=== PATIENT | male | born 1930 | race Caucasian/White ===

== ENCOUNTER 2018-09-25 18:08 | Inpatient (IN) ==
[2018-09-25] MEDS ORDERED: Lactated Ringers 1,000 ML PRIMARY IV ONE (18:18)
--- NOTE | 2018-09-25 18:21 | PDOC ---
Altered Mental Status HPI - General Chief Complaint: Altered Mental Status Stated Complaint: DECREASED LOC / EMESIS Date Seen by Provider: 09/25/18 Time Seen by Provider: 18:10 Source: POSITIVE: Patient, EMS Exam Limitations: POSITIVE: No limitations Nurse's Notes Reviewed & Considered: Yes - Record Incomplete EMS Report Reviewed & Considered: Verbal - Patient Home Medications Home Medications: Home Medications Lisinopril [Prinivil Tab] 1 tab PO DAILY 09/18/09 Nitroglycerin [Nitro-Dur] 1 ea TD DAILY 11/22/11 Nitroglycerin [Nitrostat] 1 tab SL PRN 11/22/11 Ranolazine [Ranexa] 1 tab PO BID #60 tab 12/12/12 Pantoprazole Sodium [Protonix] 40 mg PO DAILY #30 tab 07/04/14 Diltiazem HCl [Cardizem Cd] 1 cap PO QAM #1 07/05/14 Furosemide 1 tab PO QAM tab 08/04/14 Menthol [Biofreeze] 118 ml TOPICAL BID PRN ml 02/26/16 Naproxen Sodium [Aleve] 1 tab PO QHS tab 06/15/16 acetaminophen 500 mg capsule 1,000 mg PO QHS cap 05/30/17 acetaminophen 500 mg capsule 1,000 mg PO TID PRN cap 05/30/17 clopidogrel 75 mg tablet 75 mg PO QAM tab 05/30/17 insulin aspart U- 100 100 unit/mL subcutaneous solution 20 unit SUBCUT BID #1 vial 05/30/17 potassium chloride ER 10 mEq tablet,extended release 10 meq PO QDAY 05/30/17 insulin glargine (U- 100) 100 unit/mL subcutaneous solution 40 unit SUBCUT QHS ml 06/05/18 insulin glargine (U-100) 100 unit/mL (3 mL) subcutaneous pen 10 unit SUBCUT QDAY ml 06/05/18 nitroglycerin 0.4 mg/hr transdermal 24 hour patch 1 patch TRANSDERM QPM ea 06/05/18 melatonin 3 mg tablet 3 mg PO QHS 08/14/18 oxybutynin chloride 5 mg tablet 5 mg PO QDAY tab 08/14/18 tamsulosin 0.4 mg capsule 0.4 mg PO QHS cap 08/14/18 - Patient Allergies Allergies/Adverse Reactions: Allergies Allergy/AdvReac Type Severity Reaction Status Date / Time BETA BLOCKERS Allergy Unknown [place] Uncoded 09/25/18 22:55 Past Medical History - heen HEENT History: Hard of Hearing, Other (please comment) Additional HEENT History: wears glasses Cardiovascular History: Hypertension, Angina, CAD, Arrhythmia, Hyperlipidemia, Other (please comment) Additional Cardiovasular History: BRADYCARDIA, HYPERTENSIVE CARDIOVASCULAR DISEASE. Respiratory History: COPD, Home Oxygen Use Gastrointestinal History: GERD, Other (please comment) Additional Gastrointestinal History: REFULX ESOPHAGITIS Genitourinary History: Denies History Endocrine History: Type 2 Diabetes (insulin) Musculoskeletal History: Muscle Weakness, Joint Pain, Other (please comment) Prosthesis or Implant: No Additional Musculoskeletal History: UNABLE TO AMBULATE ATTRIBUTED TO "BAD KNEES" Neurological History: CVA, Dementia Blood Disorders: Anemia Psychiatric History: Depression, Anxiety Disorders, Other (please comment) Additional Psychiatric History: INSOMNIA History of Sexually Transmitted Diseases: No Cancer History: Denies History History of MDRO: Unknown History of Other Communicable Diseases: No Alcohol Use: None In the Past 12 Months, Have Used or Abuse Any Substance: None Previous Surgical History: Yes Type / Date of Surgery: HEAD SURGERY 1967, KNEE REPLACEMENT, APPY Anesthesia Reactions: No Malignant Hyperthermia: No Significant Family History: No pertinent family hx ROS - Limitations ROS Limitations: Clinical Condition Altered Mental Physical Exam - General Appearance General Appearance: POSITIVE: Alert, Mild Distress - HEENT HEENT: POSITIVE: Head Inspection Nml, PERRL, EOMI, Dry Mucous Membranes. NEGATIVE: Ear Drainage, Purulent Nasal Drainage, Pharyngeal Erythema, Pharyngeal Exudate - Pupil Size Pupil Size: 4 mm: Bilateral - Neuro/Psych Neurological: POSITIVE: Confusion, Weakness. NEGATIVE: Facial Asymmetry Cranial Nerves: POSITIVE: Other (Patient does not follow instructions) Cerebellar: POSITIVE: Other (unable to get patient to follow instructions) Reflexes: Patellar (R): 2+, Patellar (L): 2+, Bicep (R): 2+, Bicep (L): 2+ - Neck Neck: POSITIVE: Supple, Non Tender. NEGATIVE: Meningismus - Respiratory Respiratory: POSITIVE: No Respiratory Distress. NEGATIVE: Respiratory Distress, Wheezes, Rales, Rhonchi, Apneic - Cardiovascular CVS: POSITIVE: Heart Sounds Normal, Bradycardia Peripheral Pulses: Radial (R): 2+, Radial (L): 2+, Dorsalis-pedis (R): 2+, Dorsalis-pedis (L): 2+ - Abdomen Abdomen: Soft: (All Quadrants), Normal Bowel Sounds: (All Quadrants), No Splenomegaly: (All Quadrants), No Hepatomegaly: (All Quadrants), No Guarding: (All Quadrants), No Rebound: (All Quadrants) - Skin Skin: POSITIVE: Normal for Race, No Rash, Warm, Dry - Extremities Extremity: Non-Tender: (All Extremities), Normal ROM: (All Extremities), Normal Inspection: (All Extremities) Altered Mental Status - Results Reviewed By Me Xrays/CTs/US Reviewed: Yes Discussed with Radiologist: No Lab Results Reviewed by Me: Yes (Mild leukocytosis. Acute kidney injury. Anemia) CBC and BMP: 09/25/18 18:00 09/25/18 18:00 Lab Results:: Laboratory Results 09/25/18 09/25/18 09/25/18 18:00 18:00 18:00 WBC 11.64 H RBC 4.06 L Hgb 11.1 L Hct 34.3 L MCV 84.5 MCH 27.3 MCHC 32.4 L RDW Std Deviation 45.9 RDW Coeff of Rena 15.1 H Plt Count 346 MPV 8.9 Immature Gran % (Auto) 0.3 Neut % (Auto) 81.8 H Lymph % (Auto) 12.4 Coos % (Auto) 5.0 Eos % (Auto) 0.3 Baso % (Auto) 0.2 Immature Gran # (Auto) 0.03 Neut # (Auto) 9.53 Lymph # (Auto) 1.44 [place] # (Auto) 0.58 Eos # (Auto) 0.04 Baso # (Auto) 0.02 WBC Morphology Comment Normal morphology Plt Morphology Comment Normal morphology RBC Morph Comment Normal morphology Sodium 140 Potassium 4.5 Chloride 106 Carbon Dioxide 19 L Anion Gap 15 BUN 28 H Creatinine 1.6 H Estimated GFR Casing Tier BUN/Creatinine Ratio 17.50 Glucose 148 H Calculated Osmolality 298.0 H Calcium 9.4 Total Bilirubin 0.6 AST 32 ALT 7 L Alkaline Phosphatase 100 Troponin I Handheld 0.020 Total Protein 8.2 H Albumin 4.5 Globulin 3.7 Albumin/Globulin Ratio 1.20 L Ur Collection Type Urine Color Urine Clarity Urine pH Ur Specific [place] U Specif Grav (Refrac) Urine Protein Urine Glucose (UA) Urine Ketones Urine Occult Blood Urine Nitrate Urine Bilirubin Urine Urobilinogen Ur Leukocyte Esterase Ur Culture Indicated? 09/25/18 19:18 WBC RBC Hgb Hct MCV MCH MCHC RDW Std Deviation RDW Coeff of Rena Plt Count MPV Immature Gran % (Auto) Neut % (Auto) Lymph % (Auto) [place] % (Auto) Eos % (Auto) Baso % (Auto) Immature Gran # (Auto) Neut # (Auto) Lymph # (Auto) [place] # (Auto) Eos # (Auto) Baso # (Auto) WBC Morphology Comment Plt Morphology Comment RBC Morph Comment Sodium Potassium Chloride Carbon Dioxide Anion Gap BUN Creatinine Estimated GFR BUN/Creatinine Ratio Glucose Calculated Osmolality Calcium Total Bilirubin AST ALT Alkaline Phosphatase Troponin I Handheld Total Protein Albumin Globulin Albumin/Globulin Ratio Ur Collection Type Cath specimen Urine Color Yellow Urine Clarity C Urine pH 5.0 Ur Specific [place] <1.005 U Specif Grav (Refrac) 1.007 Urine Protein Negative Urine Glucose (UA) Negative Urine Ketones Negative Urine Occult Blood Negative Urine Nitrate Negative Urine Bilirubin Negative Urine Urobilinogen 0.2 Ur Leukocyte Esterase Negative Ur Culture Indicated? Culture not set EKG Interpreted/Reviewed By Me:: Yes EKG Interpretation:: POSITIVE: Other (Sinus bradycardia with first degree AV block with occasional PVCs and nonspecific t wave changes) - Patient's Progress Pain Medication Addressed: POSITIVE: Not Applicable Status: POSITIVE: Improved MDM / ED Course: 88 yo male presents to ED from intermediate. [facility] reports he was altered there and found to have vomited on himself. They report his heart rate was slow and in the 40s and that they couldn't obtain a blood pressure nor oxygen saturation. Therefore the placed patient on oxygen and called EMS. EMS found patient's initial pressure to be in 60s systolic and started a normal saline bolus. Patient arrived to ED with normal saline bolus running and his blood pressure had improved into the 80s. The initial liter of normal saline was completed and patient was given a second liter of fluids, lactated ringers. Blood cultures were drawn and patient was given rocephin IV as I was concerned he may be septic. After second liter of fluids the patient became talkative and would answer some questions which was an improvement from arrival. Patient was found to have a mild leukocytosis and an acute kidney injury on labs. UA was normal. CT head shows no acute intracranial injury. CXR shows subsegmental atalectasis but no acute infiltrate. I reviewed the patient's old medical record and his baseline heart rate runs around 50 bpm. I recommended admission for continued gentle hydration and further monitoring. Patient was amenable to plan and the case was discussed with Dr. Roa of the hospitalist service who accepted the patient for admission. patient was admitted to the floor in stable and improved condition. Antibiotics Given: Yes - CAP/CVA/Syncope CAP: POSITIVE: SaO2, Vital Signs, Mental Status Exam, Antibiotics, Blood Cultures, Chest X-ray Patient Care Time - Estimated PCT Patient Care Time (In Minutes): 90 Vital Signs - Recent Vital Signs Vital Signs: Vital Signs (Last 8 hours) Temp Pulse Pulse Resp BP BP Pulse Ox 09/25/18 22:45 97.1 F 51 L 20 103/88 94 09/25/18 18:14 95.9 F L 42 L 18 89/43 94 - VS Reviewed Vital Signs Reviewed: Yes Discharge Clinical Impression: Delirium, Dehydration, Hypotension, Acute kidney injury, Leukocytosis Discharge Disposition: Admit to Inpatient Condition: Fair Care Transferred To: Dr. Roa Date Decision to Admit to Inpatient: 09/25/18 Time Decision to Admit to Inpatient: 21:10
[2018-09-25 18:24] LABS: BASOPHILS # (AUTO) 0.02 10*3/UL; BASOPHILS % (AUTO) 0.2 % (0-1); EOSINOPHILS # (AUTO) 0.04 10*3/UL; EOSINOPHILS % (AUTO) 0.3 % (0-8); Hematocrit [HCT] 34.3 % (42.0-52.0); Hemoglobin [HGB] 11.1 g/dL (14.0-18.0); LYMPHOCYTES # (AUTO) 1.44 10*3/uL; MEAN CORPUSCULAR HEMOGLOBIN 27.3 PG (27-31); MEAN CORPUSCULAR HGB CONC 32.4 g/dL (33-37); MEAN CORPUSCULAR VOLUME 84.5 FL (80-90); MEAN PLATELET VOLUME 8.9 FL (7.4-12.2); MONOCYTES # (AUTO) 0.58 10*3/UL (0.3-0.8); NEUTROPHILS # (AUTO) 9.53 10*3/UL; NEUTROPHILS % (AUTO) 81.8 % (50-80); PLATELET MORPHOLOGY COMMENT NORMAL MORPHOLOGY (NORM); RBC MORPHOLOGY COMMENT NORMAL MORPHOLOGY (NORM); RED BLOOD COUNT 4.06 10^6/uL (4.70-6.10); WBC MORPHOLOGY COMMENT NORMAL MORPHOLOGY (NORM)
[2018-09-25 18:28] LABS: BLOOD UREA NITROGEN 28 mg/dL (7-22); SERUM ALBUMIN 4.5 g/dL (3.5-4.8)
--- NOTE | 2018-09-25 18:47 | EKG ---
[address] [address] Measurements Intervals [place] Rate: 44 P: 75 CT: 218 QRS: 59 QRSD: 93 T: 75 QT: 482 QTc: 432 Interpretive Statements PROBABLE JUNCTIONAL BRADYCARDIA WITH OCCASIONAL VENTRICULAR PREMATURE COMPLEXES NONSPECIFIC T-WAVE ABNORMALITY Compared to ECG 07/03/2014 10:03:27 Ventricular premature complex(es) now present Sinus rhythm no longer present T-wave abnormality still present Electronically Signed On 09-25-18 19:16:02 MDT by Aron Wagner [email or web address]
--- NOTE | 2018-09-25 19:13 | DI ---
XR CXR 1VW,09/25/2018 6:16 PM: Clinical History: Hypoxia and altered mental status Previous Exam: None at this facility. Findings: A single frontal radiograph of the chest is obtained, and demonstrates blunting of the left costophre champ angle. There is some mild silhouetting of the right heart border and the upper hemidiaphragms. Overlying EKG leads are seen. Mild degenerative changes are seen of the acromioclavicular joint. Impression: 1. Subsegmental atelectasis in the lung bases otherwise unremarkable.
[2018-09-25] MEDS ORDERED: cefTRIAXone Inj 2 GM in Sodium Chloride 0.9% 100 ML IV ONE (19:20)
[2018-09-25 19:22] LABS: CLARITY,URINE C (CLEAR); COLOR,URINE YELLOW (Y); URINE SAMPLE TYPE CATH SPECIMEN
[2018-09-25 19:23] LABS: BILIRUBIN,URINE NEGATIVE (NEG); GLUCOSE, URINE (UA) NEGATIVE (NEG); OCCULT BLOOD,URINE NEGATIVE (NEG); PROTEIN,URINE NEGATIVE (NEG); UROBILINOGEN,URINE 0.2 EU/dL (0.2)
[2018-09-25 19:24] LABS: URINE SPECIFIC GRAVITY - MAN 1.007
--- NOTE | 2018-09-25 21:00 | DI ---
CT Head WO Contrast,09/25/2018 8:18 PM: Clinical History: Altered mental status Previous Exam: None at this facility. Findings: Multiple helically acquired CT images are obtained through the brain without contrast, and demonstrat e stable diffuse age-related volume loss. There is no mass, hemorrhage or midline shift. The surround ing soft tissue and osseous structures are unremarkable and unchanged from the prior exam. Impression: No acute intracranial pathology.
[2018-09-25] MEDS ORDERED: D5-1/2NS + 20mEq KCL 1,000 ML PRIMARY IV ONE (21:51)
[2018-09-25] MEDS ORDERED: DEXTROSE 50%-WATER SYRINGE 50 ML SYRINGE IVP PRN (22:00)
[2018-09-25] MEDS ORDERED: DEXTROSE 31 GM GEL PO PRN (22:00)
[2018-09-25] MEDS ORDERED: Insulin Sliding Scale Protocol SUBCUT PRN (22:00)
[2018-09-25] MEDS ORDERED: Glucagon Inj Vial 1 MG/ML VIAL IM PRN (22:00)
--- NOTE | 2018-09-25 23:24 | DI ---
EXAM: CT Chest Without Intravenous Contrast CLINICAL HISTORY: Cough. TECHNIQUE: Axial computed tomography images of the chest without intravenous contrast. Coronal and sagittal reformations provided. COMPARISON: CT dated 09/20/2010. FINDINGS: Lungs: Opacities at the bilateral lung bases (L>R). Pleural space: Unremarkable. No pneumothorax. No significant effusion. Heart: Mild cardiomegaly. No significant pericardial effusion. Bones/joints: Osseous degenerative changes and mild curvature of the spine which may be related to positioning or scoliosis. No acute fracture. No dislocation. Soft tissues: Unremarkable. Vasculature: Atherosclerotic vascular disease including coronary disease. No thoracic aortic aneurysm. Lymph nodes: No enlarged lymph nodes. IMPRESSION: 1. Opacities at bilateral lung bases (L>R). Findings are suspicious for infectious pneumonia/infiltrates although other etiologies are not excluded. Recommend clinical correlation and follow-up imaging following treatment to assess for resolution. 2. Atherosclerotic vascular disease including coronary disease. No thoracic aortic aneurysm. 3. Mild cardiomegaly. 4. Osseous degenerative changes and mild curvature of spine which may be related to positioning or scoliosis. No acute fracture.
--- NOTE | 2018-09-25 23:30 | DI ---
EXAM: CT Abdomen Without Intravenous Contrast CLINICAL HISTORY: SHANI. Cough. TECHNIQUE: Axial computed tomography images of the abdomen without intravenous contrast. Coronal and sagittal reformations provided. COMPARISON: CT dated 09/08/2011. FINDINGS: Lung bases: Opacities in bilateral lung bases (L>R). Liver: Unremarkable. Gallbladder and bile ducts: Unremarkable. No calcified stones. No ductal dilation. Pancreas: Unremarkable. No ductal dilation. Spleen: Unremarkable. No splenomegaly. Adrenals: Unremarkable. No mass. Kidneys and ureters: Left renal cysts including a bilobed cyst with calcification along wall/septation. No hydronephrosis. Stomach and bowel: Mild distal colonic wall thickening, incompletely imaged. Air-fluid levels in the colon suggestive of diarrheal state which may be related to nonspecific enteritis/enterocolitis. Appendix: Appendix not seen. No findings to suggest acute appendicitis. Intraperitoneal space: No free air. No significant fluid collection. Bones/joints: Expansile/destructive process involving left iliac wing with associated soft tissue component and suspected fluid/edema in left iliacus muscle. Osseous degenerative changes. No acute fracture or dislocation. Soft tissues: Fat-containing umbilical hernia. Vasculature: Atherosclerotic vascular disease without abdominal aortic aneurysm. Lymph nodes: Unremarkable. No enlarged lymph nodes. IMPRESSION: 1. Opacities in bilateral lung bases (L>R) which may be related to infection/pneumonia with components of atelectasis or other etiologies not excluded. Correlate clinically. 2. Expansile/destructive process involving left iliac wing with associated soft tissue component and suspected fluid/edema in left iliacus muscle. Findings may be related to chronic infection and/or neoplasm. Recommend orthopedic referral and may consider MRI to further assess 3. Mild distal colonic wall thickening (incompletely imaged) suggestive of colitis. Additionally, there are air-fluid levels in proximal colon suggestive of diarrheal state which may be related to nonspecific enteritis/enterocolitis. Recommend clinical correlation. 4. Atherosclerotic vascular disease without abdominal aortic aneurysm. 5. Left renal cysts including a bilobed cyst with calcification along wall/septation. 6. Fat-containing umbilical hernia.
[2018-09-26] MEDS ORDERED: LIDOCAINE HCL 2 % 10 ML JELLY URO-JECT TOPICAL PRN (00:19)
[2018-09-26] MEDS ORDERED: LIDOCAINE W/ SODIUM BICARB 0.5 ML SYR SUBD PRN (00:19)
[2018-09-26] MEDS ORDERED: Sodium Chloride 0.9% 1,000 ML PRIMARY IV ONE (00:19)
[2018-09-26] MEDS ORDERED: Magnesium Sulfate 2gm (Premix) 2 GM/50 ML BAG IV ONE (00:19)
[2018-09-26] MEDS: Lactated Ringers 1,000 ML PRIMARY IV SCH ×3 (00:52→17:54)
[2018-09-26] MEDS: TAMSULOSIN 0.4 MG CAPSULE PO SCH ×2 (00:53→20:10)
[2018-09-26] MEDS: HEPARIN 5000 UNIT/1 ML SUBCUT SCH ×3 (00:53→16:38)
[2018-09-26] MEDS: cefTRIAXone Inj 2 GM in Sodium Chloride 0.9% 100 ML IV SCH (00:54)
[2018-09-26] MEDS ORDERED: Ertapenem Inj 1 GM in Sodium Chloride 0.9% 100 ML IV SCH (02:00)
[2018-09-26] MEDS ORDERED: ONDANSETRON 4 MG/2 ML VIAL IVP PRN (02:02)
--- NOTE | 2018-09-26 02:53 | PDOC ---
HPI - History of Present Illness History of Present Illness: This is a 88-year-old gentleman who resides at [facility] the care home reported that he had vomited and had the bradycardia which is in his histor y was brought to the emergency room also was found to have low systolic blood pressures patient was given IV fluids and his blood pressure stabilized urine was clear. I did get a CT scan of the chest and abdomen and pelvis without contrast which revealed pneumonia I have treated the patient with IV antibiotics I chose Invanz because a CT scan of the abdomen showed also some colitis. Patient does not complain of pain he does not have pain in his hips he is not short of breath or has chest pain We have put in a Guido we will give him some IV Lasix 20 and continue IV fluids does have some lower extremity edema. Past Medical History Medical History: Hypertension, Angina, CAD, Arrhythmia, Hyperlipidemia, Other (please comment). Additional Cardiovasular History: BRADYCARDIA, HYPERTENSIVE CARDIOVASCULAR DISEASE. Surgical History: Knee replacements as well. Patient does not ambulate at the care home Tobacco Use: Never Smoker In the Past 12 Months, Have Used or Abuse Any of the Following Substance: None Medication / Allergies Home Medications: Home Medications Medication Instructions Recorded Confirmed Type Lisinopril [Prinivil Tab] 1 tab PO DAILY 09/18/09 09/26/18 History Nitroglycerin [Nitro-Dur] 1 ea TD DAILY 11/22/11 09/26/18 History Nitroglycerin [Nitrostat] 1 tab SL PRN 11/22/11 09/26/18 History Ranolazine [Ranexa] 1 tab PO BID #60 tab 12/12/12 09/26/18 History Pantoprazole Sodium [Protonix] 40 mg PO DAILY #30 tab 07/04/14 09/26/18 Rx Diltiazem HCl [Cardizem Cd] 1 cap PO QAM #1 07/05/14 09/26/18 History Furosemide 1 tab PO QAM tab 08/04/14 09/26/18 History Menthol [Biofreeze] 118 ml TOPICAL BID PRN ml 02/26/16 09/26/18 History Naproxen Sodium [Aleve] 1 tab PO QHS tab 06/15/16 09/26/18 History acetaminophen 500 mg capsule 1,000 mg PO QHS cap 05/30/17 09/26/18 History acetaminophen 500 mg capsule 1,000 mg PO TID PRN cap 05/30/17 09/26/18 History clopidogrel 75 mg tablet 75 mg PO QAM tab 05/30/17 09/26/18 History insulin aspart U- 100 100 unit/mL 20 unit SUBCUT BID #1 vial 05/30/17 09/26/18 Rx subcutaneous solution potassium chloride ER 10 mEq 10 meq PO QDAY 05/30/17 09/26/18 History tablet,extended release insulin glargine (U- 100) 100 40 unit SUBCUT QHS ml 06/05/18 09/26/18 History unit/mL subcutaneous solution insulin glargine (U-100) 100 10 unit SUBCUT QDAY ml 06/05/18 09/26/18 History unit/mL (3 mL) subcutaneous pen nitroglycerin 0.4 mg/hr 1 patch TRANSDERM QPM ea 06/05/18 09/26/18 History transdermal 24 hour patch melatonin 3 mg tablet 3 mg PO QHS 08/14/18 09/26/18 History oxybutynin chloride 5 mg tablet 5 mg PO QDAY tab 08/14/18 09/26/18 History tamsulosin 0.4 mg capsule 0.4 mg PO QHS cap 08/14/18 09/26/18 History Allergies/Adverse Reactions: Allergies Allergy/AdvReac Type Severity Reaction Status Date / Time BETA BLOCKERS Allergy Unknown [place] Uncoded 09/25/18 22:55 Exam - Vitals Vital Signs: Vital Signs Temperature 97.1 F Temperature Source Temporal Artery Scan Pulse Rate [Pulse Oximeter] 59 Pulse Rate 51 Respiratory Rate 24 Blood Pressure [Left Arm] 117/45 Blood Pressure 103/88 Pulse Ox 95 Oxygen Flow Rate 4 Oxygen Delivery Method Nasal Cannula Height 5 ft 6 in Weight 240 lb - General General Appearance: No Acute Distress, Cooperative - Head Head Exam: Normal Inspection, Atraumatic - Respiratory Respiratory Exam: POSITIVE: Breathing Non Labored, Decreased Breath Sounds. NEG ATIVE: Rhonci, Crackles, Wheezes - Cardiovascular Cardiovascular Exam: POSITIVE: RRR, No Murmur, No Clicks, No Gallops, No Rubs, PMI Non-Displaced - GI/Abdominal GI/Abdominal Exam: POSITIVE: Normal Bowel Sounds, Non Tender, Non Distended, Soft, No Masses, No Hepatomegaly, No Splenomegaly, No Organomegaly - Extremities Extremities Exam: POSITIVE: +1 Edema - Neurological Neurological Exam: POSITIVE: Alert, No Facial Droop, Speech Intact / Clear, Moves All Extremities Equally Results - Labs CBC and BMP: 09/25/18 18:00 09/25/18 18:00 Assessment and Plan - Patient Problems (1) Pneumonia Current Visit: Yes Status: Acute Code(s): J18.9 - Pneumonia, unspecified organism (2) Acute kidney injury Current Visit: Yes Status: Acute Code(s): N17.9 - Acute kidney failure, unspecified (3) Dehydration Current Visit: Yes Status: Acute Code(s): E86.0 - Dehydration (4) Hypotension Current Visit: Yes Status: Acute Code(s): I95.9 - Hypotension, unspecified (5) Leukocytosis Current Visit: Yes Status: Acute Code(s): D72.829 - Elevated white blood cell count, unspecified - Assessment / Plan Additional Assessment/Plan Details: #1. Coronary pneumonia on CT scan a she received Rocephin in the ER gave patient 1 dose of Invanz. #2 possible colitis continue Invanz #3 dehydration with hypotension patient is being resuscitated with IV fluids I will give 20 of Lasix IV to increase his urine output a little bit this is a very careful balance between hypotension and fluid overload I will check a BMP #4 the patient is bedbound at the care home #5 patient is pretty critical we'll keep on treating see if he has any family members and we will discuss further treatment options at this time we will continue treating if he deteriorates I will try to reach the family stress with nursing in the room
[2018-09-26] MEDS ORDERED: FUROSEMIDE 10 MG/1 ML - 2 ML VIAL IVP ONE (03:14)
[2018-09-26 04:28] LABS: BASOPHILS # (AUTO) 0.01 10*3/UL; BASOPHILS % (AUTO) 0.1 % (0-1); EOSINOPHILS # (AUTO) 0.01 10*3/UL; EOSINOPHILS % (AUTO) 0.1 % (0-8); Hematocrit [HCT] 32.1 % (42.0-52.0); Hemoglobin [HGB] 10.7 g/dL (14.0-18.0); LYMPHOCYTES # (AUTO) 0.91 10*3/uL; MEAN CORPUSCULAR HEMOGLOBIN 27.8 PG (27-31); MEAN CORPUSCULAR HGB CONC 33.3 g/dL (33-37); MEAN CORPUSCULAR VOLUME 83.4 FL (80-90); MEAN PLATELET VOLUME 8.9 FL (7.4-12.2); MONOCYTES # (AUTO) 0.57 10*3/UL (0.3-0.8); MONOCYTES % (AUTO) 6.5 % (5-15); NEUTROPHILS # (AUTO) 7.23 10*3/UL; NEUTROPHILS % (AUTO) 82.8 % (50-80); RED BLOOD COUNT 3.85 10^6/uL (4.70-6.10)
[2018-09-26 04:33] LABS: PLATELET MORPHOLOGY COMMENT NORMAL MORPHOLOGY (NORM); RBC MORPHOLOGY COMMENT NORMAL MORPHOLOGY (NORM); WBC MORPHOLOGY COMMENT NORMAL MORPHOLOGY (NORM)
[2018-09-26 04:38] LABS: BLOOD UREA NITROGEN 31 mg/dL (7-22); BUN/CREATININE RATIO 19.37 (6-20); SERUM ALBUMIN 3.6 g/dL (3.5-4.8)
[2018-09-26 05:37] LABS: VENOUS PH 7.3 (7.32-7.42)
[2018-09-26] MEDS: CLOPIDOGREL 75 MG TABLET PO SCH (09:41)
[2018-09-26] MEDS: PANTOPRAZOLE IV 40 MG VIAL IVP SCH (09:41)
[2018-09-27] MEDS ORDERED: Sodium Chloride 0.9% 100 ML IV ONE (00:38)
[2018-09-27] MEDS: Lactated Ringers 1,000 ML PRIMARY IV SCH ×3 (00:39→18:43)
[2018-09-27] MEDS: HEPARIN 5000 UNIT/1 ML SUBCUT SCH ×3 (00:39→17:25)
[2018-09-27] MEDS: cefTRIAXone Inj 2 GM in Sodium Chloride 0.9% 100 ML IV SCH (00:39)
[2018-09-27 05:58] LABS: BASOPHILS # (AUTO) 0.02 10*3/UL; BASOPHILS % (AUTO) 0.3 % (0-1); EOSINOPHILS # (AUTO) 0.16 10*3/UL; EOSINOPHILS % (AUTO) 2.1 % (0-8); Hematocrit [HCT] 28.2 % (42.0-52.0); Hemoglobin [HGB] 9.1 g/dL (14.0-18.0); LYMPHOCYTES # (AUTO) 1.46 10*3/uL; MEAN CORPUSCULAR HEMOGLOBIN 26.8 PG (27-31); MEAN CORPUSCULAR HGB CONC 32.3 g/dL (33-37); MEAN CORPUSCULAR VOLUME 83.2 FL (80-90); MEAN PLATELET VOLUME 9.3 FL (7.4-12.2); MONOCYTES # (AUTO) 0.64 10*3/UL (0.3-0.8); MONOCYTES % (AUTO) 8.6 % (5-15); NEUTROPHILS # (AUTO) 5.17 10*3/UL; NEUTROPHILS % (AUTO) 69.3 % (50-80); RED BLOOD COUNT 3.39 10^6/uL (4.70-6.10)
[2018-09-27 06:02] LABS: PLATELET MORPHOLOGY COMMENT NORMAL MORPHOLOGY (NORM); RBC MORPHOLOGY COMMENT NORMAL MORPHOLOGY (NORM); WBC MORPHOLOGY COMMENT NORMAL MORPHOLOGY (NORM)
[2018-09-27 06:18] LABS: BLOOD UREA NITROGEN 20 mg/dL (7-22); BUN/CREATININE RATIO 18.18 (6-20)
[2018-09-27] MEDS: Ertapenem Inj 0.5 GM in Sodium Chloride 0.9% 100 ML IV SCH (07:17)
[2018-09-27] MEDS: CLOPIDOGREL 75 MG TABLET PO SCH (08:03)
[2018-09-27] MEDS: PANTOPRAZOLE IV 40 MG VIAL IVP SCH (08:03)
--- NOTE | 2018-09-27 14:11 | DI ---
CT Abdomen/Pelvis WO Contrast,09/27/2018 12:55 PM: Clinical History: Iliac abnormality. Previous Exam: September 25, 2018 and September 08, 2011 Findings: Multiple helically acquired CT images are obtained through the abdomen and pelvis without contrast. T here are small bilateral pleural effusions. There is a Guido catheter within the urinary bladder. There is some fluid within the rectum. There is a trace amount of fluid within the left lower quadrant. There is an expansile lesion involving the left anterior superior iliac crest with some fragmentation and some surrounding periosteal reaction. There is a soft tissue component within the anterior super ior iliac crest as well as some thickening within the iliac is muscle. This was at least partially vi sible on the examination in 2011. There has been some change in the appearance with new periosteal re action and increasing expansion. A few peripheral vascular calcifications are seen. There is diffuse osteopenia. There is loss of intervertebral disc height at multiple levels with some gentle dextroscoliosis. There are no mesenteric nor retroperitoneal lymphadenopathy. Impression: Mass within the left anterior superior iliac crest which has been present for several years, but now demonstrating some increasing expansion of some periosteal reaction and fragmentation which was sligh tly more than on the prior exam. This could represent a chronic traumatic process. Cannot completely rule out the possibility of a malignant process. Correlate with patient's history. Tissue sampling ma y be appropriate.
--- NOTE | 2018-09-27 15:56 | PDOC(PROG) ---
Date of Service: 09/27/18 Time of Service: 15:47 Interval History: patient seen and evaluated earlier no history from patient obtainable due to dementia, has lots of sputum on his chest this AM Objective : Data - Labs CBC and BMP: 09/27/18 05:20 09/27/18 05:20 Objective : Exam - General General Appearance: No Acute Distress, Cooperative Additional General Exam Details: Vital Signs - Last Taken Temperature 97 F 09/27/18 12:19 Pulse Rate 69 09/27/18 12:19 Respiratory Rate 16 09/27/18 12:19 Blood Pressure 130/44 09/27/18 12:19 Pulse Ox 94 09/27/18 12:19 - Eye Eye Exam: No Scleral Icterus - ENT ENT Exam: Mucous Membranes Dry - Neck Neck Exam: JVP is not Raised - Respiratory Respiratory Exam: Breathing Non Labored, Decreased Breath Sounds - Cardiovascular Cardiovascular Exam: RRR, No Murmur, No Clicks, No Gallops, No Rubs, No JVD - GI/Abdominal GI/Abdominal Exam: Normal Bowel Sounds, Non Tender, Non Distended, Soft - Extremities Extremities Exam: No Clubbing Present, No Edema Present, No Cyanosis Present - Neurological Neurological Exam: Alert, No Facial Droop, Speech Intact / Clear, Moves All Extremities Equally, Altered Assessment and Plan - Patient Problems (1) Pneumonia Current Visit: Yes Status: Acute Code(s): J18.9 - Pneumonia, unspecified organism Qualifiers: Pneumonia type: aspiration pneumonia (2) Colitis Current Visit: Yes Status: Acute Code(s): K52.9 - Noninfective gastroenteritis and colitis, unspecified (3) Bone lesion Current Visit: Yes Status: Acute Code(s): M89.9 - Disorder of bone, un specified (4) Dehydration Current Visit: Yes Status: Acute Code(s): E86.0 - Dehydration (5) Acute kidney injury Current Visit: Yes Status: Resolved Code(s): N17.9 - Acute kidney failure, unspecified (6) Dementia Current Visit: Yes Status: Acute Code(s): F03.90 - Unspecified dementia without behavioral disturbance Qualifiers: Dementia type: Alzheimer's disease Alzheimer's disease onset: late-onset Dementia behavioral disturbance: without behavioral disturbance Qualified Code(s): G30.1 - Alzheimer's disease with late onset; F02.80 - Dementia in other diseases classified elsewhere without behavioral disturbance - Assessment / Plan Additional Assessment/Plan Details: Continue treatment for what appears to be aspiration pneumonia with Invanz. This should also cover for colitis. Day #2 of antibiotics I discussed with orthopedics regarding this iliac issue on the left side. We reviewed the CT scans from 2011 and yesterday. It appears that there is something that's progressive but we will get a bony window CT scan to further elucidate any issues. Given the patient's age, dementia and like to try to find some family somewhere to discuss how far they like to take this type of a workup. I wonder about a slow-growing tumor. Not ready for disposition yet. Labs in a.m.
[2018-09-27] MEDS: TAMSULOSIN 0.4 MG CAPSULE PO SCH (20:04)
[2018-09-28] MEDS: Lactated Ringers 1,000 ML PRIMARY IV SCH ×2 (02:50→14:13)
[2018-09-28 05:49] LABS: BASOPHILS # (AUTO) 0.02 10*3/UL; BASOPHILS % (AUTO) 0.3 % (0-1); EOSINOPHILS % (AUTO) 4.7 % (0-8); Hematocrit [HCT] 27.5 % (42.0-52.0); Hemoglobin [HGB] 8.9 g/dL (14.0-18.0); LYMPHOCYTES # (AUTO) 1.49 10*3/uL; MEAN CORPUSCULAR HEMOGLOBIN 27.2 PG (27-31); MEAN CORPUSCULAR HGB CONC 32.4 g/dL (33-37); MEAN CORPUSCULAR VOLUME 84.1 FL (80-90); MEAN PLATELET VOLUME 8.3 FL (7.4-12.2); MONOCYTES # (AUTO) 0.52 10*3/UL (0.3-0.8); MONOCYTES % (AUTO) 8.1 % (5-15); NEUTROPHILS # (AUTO) 4.07 10*3/UL; NEUTROPHILS % (AUTO) 63.5 % (50-80); RED BLOOD COUNT 3.27 10^6/uL (4.70-6.10)
[2018-09-28 06:12] LABS: PLATELET MORPHOLOGY COMMENT NORMAL MORPHOLOGY (NORM); RBC MORPHOLOGY COMMENT NORMAL MORPHOLOGY (NORM); WBC MORPHOLOGY COMMENT NORMAL MORPHOLOGY (NORM)
[2018-09-28 06:26] LABS: BLOOD UREA NITROGEN 15 mg/dL (7-22); BUN/CREATININE RATIO 16.66 (6-20); SERUM ALBUMIN 2.7 g/dL (3.5-4.8)
[2018-09-28] MEDS: Ertapenem Inj 0.5 GM in Sodium Chloride 0.9% 100 ML IV SCH (07:25)
[2018-09-28] MEDS: CLOPIDOGREL 75 MG TABLET PO SCH (09:38)
[2018-09-28] MEDS: PANTOPRAZOLE IV 40 MG VIAL IVP SCH (09:38)
[2018-09-28] MEDS: HEPARIN 5000 UNIT/1 ML SUBCUT SCH ×2 (11:53)
[2018-09-28 12:33] VITALS: BP 150/53; RESP 18; TEMP 96.9; O2SAT 95
--- NOTE | 2018-09-28 14:38 | DCSUMMARY ---
Hospitalization Summary Admit Date: 09/26/2018 Discharge Date: 09/28/18 Primary Diagnosis:: pneumonia Hospital Course: This is an 88-year-old male with dementia and no family members or appointed power of document review attorney, who was sent over from [facility] after he was found be bradycardic and had vomiting. He was admitted, found to have colitis and what appeared to be pneumonia as well. He was treated for potential aspiration pneumonia along with colitis with Invanz daily. He had hypotension initially which resolved. He had the escalation in his white blood cell count with antibiotic therapy and fluids. The patient will be discharged on Augmentin by mouth twice a day for 5 additional days for a total of 8 days for this pneumonia. He is much better and would like to go back to [facility]. Incidentally, we did notice a left iliac crest lesion. 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 I think the benefits of doing any biopsy procedures are outweighed by his significant risk given this patient's dementia, age, surgical risks, and nondistended candidate see for therapy should this be a malignancy. He is too ill, deconditioning, nonmobile, to tolerate chemotherapy or extensive surgical therapy for this lesion. He does not have pain on palpation of his left hip or iliac crest. He had no understanding of this process from the past. No complaints of chest pain or trouble breathing today. History compromised by dementia. Assessment and Plan: 1. As per discharge assessments noted 2. Disposition: Patient is discharged back to [facility] 3. Condition on discharge, stable and improved. 4. Diet: regular diet 5. Activities: resume normal activities 6. Follow-Up: 1. Dr. Chew will resume primary care 7. Medications at the Time of Discharge: Home Medications Medication Instructions Recorded Confirmed Type Lisinopril [Prinivil Tab] 1 tab PO DAILY 09/18/09 09/26/18 History Nitroglycerin [Nitro-Dur] 1 ea TD DAILY 11/22/11 09/26/18 History Nitroglycerin [Nitrostat] 1 tab SL PRN 11/22/11 09/26/18 History Ranolazine [Ranexa] 1 tab PO BID #60 tab 12/12/12 09/26/18 History Pantoprazole Sodium [Protonix] 40 mg PO DAILY #30 tab 07/04/14 09/26/18 Rx Diltiazem HCl [Cardizem Cd] 1 cap PO QAM #1 07/05/14 09/26/18 History Furosemide 1 tab PO QAM tab 08/04/14 09/26/18 History Menthol [Biofreeze] 118 ml TOPICAL BID PRN ml 02/26/16 09/26/18 History Naproxen Sodium [Aleve] 1 tab PO QHS tab 06/15/16 09/26/18 History acetaminophen 500 mg capsule 1,000 mg PO QHS cap 05/30/17 09/26/18 History acetaminophen 500 mg capsule 1,000 mg PO TID PRN cap 05/30/17 09/26/18 History clopidogrel 75 mg tablet 75 mg PO QAM tab 05/30/17 09/26/18 History insulin aspart U- 100 100 unit/mL 20 unit SUBCUT BID #1 vial 05/30/17 09/26/18 Rx subcutaneous solution potassium chloride ER 10 mEq 10 meq PO QDAY 05/30/17 09/26/18 History tablet,extended release insulin glargine (U- 100) 100 40 unit SUBCUT QHS ml 06/05/18 09/26/18 History unit/mL subcutaneous solution insulin glargine (U-100) 100 10 unit SUBCUT QDAY ml 06/05/18 09/26/18 History unit/mL (3 mL) subcutaneous pen nitroglycerin 0.4 mg/hr 1 patch TRANSDERM QPM ea 06/05/18 09/26/18 History transdermal 24 hour patch melatonin 3 mg tablet 3 mg PO QHS 08/14/18 09/26/18 History oxybutynin chloride 5 mg tablet 5 mg PO QDAY tab 08/14/18 09/26/18 History tamsulosin 0.4 mg capsule 0.4 mg PO QHS cap 08/14/18 09/26/18 History Amoxicill/Clav 875/125mg 1 ea PO BID #10 tab 09/28/18 Rx [Augmentin 875/125mg] 8. Time, care, counseling and coordination of care for this discharge is less than 30 minutes. Exam - Vitals Vital Signs: Vital Signs Temperature 96.9 F Temperature Source Temporal Artery Scan Pulse Rate [Pulse Oximeter] 65 Pulse Rate 76 Respiratory Rate 18 Blood Pressure [Right Arm] 141/57 Blood Pressure [Left Arm] 150/53 Blood Pressure 103/88 Pulse Ox 95 Oxygen Flow Rate 4 Oxygen Delivery Method Nasal Cannula Height 5 ft 6 in Weight 201 lb 6 oz - General General Appearance: No Acute Distress, Cooperative - Eye Eye Exam: POSITIVE: No Scleral Icterus - ENT ENT Exam: POSITIVE: Mucous Membranes Moist - Neck Neck Exam: JVP is not Raised - Respiratory Respiratory Exam: POSITIVE: Breathing Non Labored, Decreased Breath Sounds - Cardiovascular Cardiovascular Exam: POSITIVE: RRR, No Murmur, No Clicks, No Gallops, No Rubs, No JVD - GI/Abdominal GI/Abdominal Exam: POSITIVE: Normal Bowel Sounds, Non Tender, Non Distended, Soft - Extremities Extremities Exam: POSITIVE: No Clubbing Present, No Edema Present, No Cyanosis Present - Neurological Neurological Exam: POSITIVE: Alert, No Facial Droop, Speech Intact / Clear Data Peritnent Studies: Laboratory Results 09/28/18 09/28/18 05:40 05:40 WBC 6.41 RBC 3.27 L Hgb 8.9 L Hct 27.5 L MCV 84.1 MCH 27.2 MCHC 32.4 L RDW Std Deviation 44.9 RDW Coeff of Rena 14.9 H Plt Count 234 MPV 8.3 Immature Gran % (Auto) 0.2 Neut % (Auto) 63.5 Lymph % (Auto) 23.2 [place] % (Auto) 8.1 Eos % (Auto) 4.7 Baso % (Auto) 0.3 Immature Gran # (Auto) 0.01 Neut # (Auto) 4.07 Lymph # (Auto) 1.49 [place] # (Auto) 0.52 Eos # (Auto) 0.30 Baso # (Auto) 0.02 WBC Morphology Comment Normal morphology Plt Morphology Comment Normal morphology RBC Morph Comment Normal morphology Sodium 138 Potassium 3.8 Chloride 107 Carbon Dioxide 22 L Anion Gap 9 BUN 15 Creatinine 0.9 BUN/Creatinine Ratio 16.66 Glucose 171 H Calculated Osmolality 290.0 Calcium 8.2 L Total Bilirubin 0.5 AST 64 H ALT 36 Alkaline Phosphatase 53 Total Protein 5.3 L Albumin 2.7 L Globulin 2.6 Albumin/Globulin Ratio 1.00 L Procedures: [address] [facility] [facility] [place] [address] PH: DD: [phone] FAX: [phone] ~DIAGNOSTIC IMAGING REPORT~ Patient: Roshan Tillman : 1930 Sex: M Age: 88 Exam Name: CT Abdomen/Pelvis WO Contrast Exam Date: 09/27/18 Report # : [id number] CPT Code: 24593 EMR/MR #: [id number] Ordering: DENA BOGGS Admiting: MISSY ISABEL MD. Primary: Dmitry Chew MD Attending: MISSY ISABEL MD. Signed CT Abdomen/Pelvis WO Contrast,09/27/2018 12:55 PM: Clinical History: Iliac abnormality. Previous Exam: September 25, 2018 and September 08, 2011 Findings: Multiple helically acquired CT images are obtained through the abdomen and pelvis without contrast. There are small bilateral pleural effusions. There is a Guido catheter within the urinary bladder. There is some fluid within the rectum. There is a trace amount of fluid within the left lower quadrant. There is an expansile lesion involving the left anterior superior iliac crest with some fragmentation and some surrounding periosteal reaction. There is a soft tissue component within the anterior superior iliac crest as well as some thickening within the iliac is muscle. This was at least partially visible on the examination in 2011. There has been some change in the appearance with new periosteal reaction and increasing expansion. A few peripheral vascular calcifications are seen. There is diffuse osteopenia. There is loss of intervertebral disc height at multiple levels with some gentle dextroscoliosis. There are no mesenteric nor retroperitoneal lymphadenopathy. Impression: Mass within the left anterior superior iliac crest which has been present for several years, but now demonstrating some increasing expansion of some periosteal reaction and fragmentation which was slightly more than on the prior exam. This could represent a chronic traumatic process. Cannot completely rule out the possibility of a malignant process. Correlate with patient's history. Tissue sampling may be appropriate. Dictated By: 09/27/18 0166 STEF OWEN MD. Signed By: 09/27/18 1413 STEF OWEN MD. [address] [facility] [place] [address] PH: DD: [phone] FAX: [phone] ~DIAGNOSTIC IMAGING REPORT~ --- Patient: Roshan Tillman : 1930 Sex: M Age: 88 Exam Name: CT Chest WO Contrast Exam Date: 09/25/18 Report # : [id number] CPT Code: 74351 EMR/MR #: [id number] Ordering: MISSY ISABEL Admiting: MISSY ISABEL MD. Primary: Dmitry Chew MD Attending: MISSY ISABEL MD. Signed EXAM: CT Chest Without Intravenous Contrast CLINICAL HISTORY: Cough. TECHNIQUE: Axial computed tomography images of the chest without intravenous contrast. Coronal and sagittal reformations provided. COMPARISON: CT dated 09/20/2010. FINDINGS: Lungs: Opacities at the bilateral lung bases (L>R). Pleural space: Unremarkable. No pneumothorax. No significant effusion. Heart: Mild cardiomegaly. No significant pericardial effusion. Bones/joints: Osseous degenerative changes and mild curvature of the spine which may be related to positioning or scoliosis. No acute fracture. No dislocation. Soft tissues: Unremarkable. Vasculature: Atherosclerotic vascular disease including coronary disease. No thoracic aortic aneurysm. Lymph nodes: No enlarged lymph nodes. IMPRESSION: 1. Opacities at bilateral lung bases (L>R). Findings are suspicious for infectious pneumonia/infiltrates although other etiologies are not excluded. Recommend clinical correlation and follow-up imaging following treatment to assess for resolution. 2. Atherosclerotic vascular disease including coronary disease. No thoracic aortic aneurysm. 3. Mild cardiomegaly. 4. Osseous degenerative changes and mild curvature of spine which may be related to positioning or scoliosis. No acute fracture. Dictated By: Narcisa Lynn MD Signed By: 09/25/18 232 Narcisa Lynn MD Patient Problems - Patient Problem List (1) Pneumonia Current Visit: Yes Status: Acute Code(s): J18.9 - Pneumonia, unspecified organism Qualifiers: Pneumonia type: aspiration pneumonia Category: Medical (2) Colitis Current Visit: Yes Status: Acute Code(s): K52.9 - Noninfective gastr oenteritis and colitis, unspecified Category: Medical (3) Bone lesion Current Visit: Yes Status: Acute Code(s): M89.9 - Disorder of bone, unspecified Category: Medical (4) Dehydration Current Visit: Yes Status: Acute Code(s): E86.0 - Dehydration Category: Medical (5) Acute kidney injury Current Visit: Yes Status: Resolved Code(s): N17.9 - Acute kidney failure, unspecified Category: Medical (6) Dementia Current Visit: Yes Status: Acute Code(s): F03.90 - Unspecified dementia without behavioral disturbance Qualifiers: Dementia type: Alzheimer's disease Alzheimer's disease onset: late-onset Dementia behavioral disturbance: without behavioral disturbance Qualified Code(s): G30.1 - Alzheimer's disease with late onset; F02.80 - Dementia in other diseases classified elsewhere without behavioral disturbance Category: Medical
== END 2018-09-28 15:22 | DRG 640 ==
LOC: ER 18:08 → MED/SURG 22:15
PROVIDERS: ADMIT Internal Medicine; ATTEND Internal Medicine